=== PATIENT | female | born 1980 | race Hispanic/Latino ===

== ENCOUNTER 2018-12-12 18:03 | Emergency (ER) | payer OTHER ==
[2018-12-12] MEDS ORDERED: CEFTRIAXONE SODIUM 1 GM ONE (20:13)
[2018-12-12] MEDS ORDERED: ACETAMINOPHEN EXTRA STRENGTH 500 MG TABLET ONE (20:14)
[2018-12-12] MEDS ORDERED: AZITHROMYCIN 250 MG TABLET PO ONE (20:14)
[2018-12-12] MEDS ORDERED: DIAZEPAM 5 MG TABLET ONE (20:15)
[2018-12-12] MEDS ORDERED: LIDOCAINE HCL 1% 20 ML VIAL ONE (20:15)
== END 2018-12-12 20:48 | disposition home or self-care (01) ==
LOC: EDH 18:03
DX: J18.9 Pneumonia, unspecified organism (principal); R07.89 Other chest pain; M62.838 Other muscle spasm; J45.909 Unspecified asthma, uncomplicated; Z87.891 Personal history of nicotine dependence
CPT/HCPCS: 71046; 93005; 96372; 99284; J0696

== ENCOUNTER 2020-02-05 12:55 | Emergency (ER) | payer SELFPAY ==
[2020-02-05] MEDS ORDERED: DEXAMETHASONE SOD PHOSPHATE 10MG/ML 1ML VIAL ONE (13:52)
[2020-02-05] MEDS ORDERED: DiphenhydrAMINE HCL 50 MG/ML VIAL ONE (13:53)
[2020-02-05] MEDS ORDERED: FAMOTIDINE/PF 20 MG/2 ML VIAL IV ONE (13:53)
[2020-02-05] MEDS ORDERED: SODIUM CHLORIDE 0.9% 500ML 500 ML IV ONE (13:54)
== END 2020-02-05 15:26 | disposition home or self-care (01) ==
LOC: EDH 12:55
DX: T78.3XXA Angioneurotic edema, initial encounter (principal); J45.909 Unspecified asthma, uncomplicated
CPT/HCPCS: 96365; 96375; 99284; J1100; J1200; J3490; J7040

== ENCOUNTER 2025-06-28 22:01 | Emergency (ER) | payer BC, OTHER ==
[~2025-06-28] VITALS: Ht 160 cm; Wt 97.7 kg
--- NOTE | 2025-06-28 22:04 | NUR ---
UA CUP PROVIDED
[2025-06-28 22:34] LABS: IMMATURE GRANULOCYTE ABSOLUTE 0.07 K/uL (0-1); NUCLEATED RED BLOOD CELLS 0.0 % (0.0-0.19); PLATELET COUNT (AUTO) 388 K/uL (130-400); RED BLOOD CELL COUNT(AUTO) 5.02 MIL/uL (4.00-5.50); RED CELL DISTRIBUTION WIDTH 14.6 % (11.0-15.5); WHITE BLOOD COUNT (AUTO) 16.5 K/uL (4.8-10.8)
[2025-06-28 22:42] LABS: CREATININE 0.7 mg/dL (0.5-1.0); GLOMERULAR FILTR. RATE CALC 108.0 mL/min (>90); GLUCOSE,RANDOM 94.0 mg/dL (70-105); SODIUM SERUM 137.0 mmol/L (136-145); UREA NITROGEN, BLOOD 15.0 mg/dL (7-18)
[2025-06-28 22:47] LABS: ASPARTATE AMINOTRANSFERASE 16.0 U/L (10-37); TOTAL PROTEIN, SERUM 7.5 g/dL (6.0-8.3)
[2025-06-28] MEDS ORDERED: IOHEXOL 350 MG/ML 100ML INFUS..BTL IV ONE (23:19)
[2025-06-28 23:36] LABS: APPEARANCE,URINE CLEAR (CLEAR); GLUCOSE, URINE (UA) NEGATIVE (NEGATIVE); LEUKOCYTE ESTERASE ,URINE NEGATIVE Leu/uL (NEGATIVE); NITRATE,URINE NEGATIVE (NEGATIVE); OCCULT BLOOD,URINE NEGATIVE (NEGATIVE)
[2025-06-28 23:37] LABS: ADD UA MICROSCOPIC NO
--- NOTE | 2025-06-29 00:33 | ERN ---
ED Note History of Present Illness Stated Complaint: RT LOWER ABD PAIN Chief Complaint: Abdominal Pain Time Seen by MD: 22:06 Time Seen by Midlevel: 22:06 Dictation: The patient is a 44-year-old female with a history of asthma, C-sections who presents to the emergency department with complaints of right lower abdominal pain, left lower abdominal pain onset two days ago. Patient denies any fevers, denies nausea vomiting or diarrhea, denies constipation. Allergies: Coded Allergies: No Known Allergies (Unverified Allergy, Unknown, 01/17/23) Past Medical History Past Medical History: Asthma, GERD Surgical History: Other, Surgical History Other: BILATERAL WRISTS RN Note Reviewed/Agreed w/PFSH: Yes Review of System Dictation Constitutional: Negative for fever,chills, and weight loss Eyes: Negative for injury, pain,redness, and discharge ENT: Negative for injury,pain or swelling Cardiovascular: Negative for chest pain, palpitations, and edema Respiratory: Negative for shortness of breath, cough, and wheezing, Abdomen/GI: Negative for nausea, vomiting, diarrhea, and constipation positive for abdominal pain Back: Negative for injury and pain : Negative for injury, bleeding and discharge MS/Extremity: Negative for injury and deformity Skin: Negative for rash, and discoloration Neuro: Negative for headache, weakness, numbness, tingling, and seizure Psych: Negative for suicide ideation, homicidal ideation, and hallucinations Initial Vital Sign VS Vital Signs Date Time Temp Pulse Resp B/P (MAP) Pulse Ox O2 Delivery O2 Flow Rate FiO2 06/28/25 22:03 97.5 64 16 135/75 99 Room Air 06/29/25 02:18 0 21 Physical Exam Dictation Vital Signs reviewed General Appearance: Alert, oriented x 3, no acute distress, well developed, nourished. Head and Face: non-traumatic. Eyes: PERRL, pink conjunctivas, eyelid no trauma, anterior chamber with arcus senilis. Ears: Pinnas intact and no signs of trauma or erythema ear canals clear and no discharge TM no erythema Nose: No discharge, no bleeding. Oropharynx: Mouth normal, tongue pink. pharynx clear,no erythema, tonsils no exudates, no abscesses noted, mucous membrane moist Neck: Supple, non-tender, no thyromegaly, no masses, no JVD, no bruits Breast:Deferred Chest:No tenderness, no crepitus, no paradoxical movement, no retractions Lungs:Clear, well-ventilated, symmetric, no rales, no wheezing, no rhonchi, no stridor, good breath sounds bilaterally Heart: Regular rate, regular rhythm, no murmur, no gallops Vascular: no peripheral edema, Abdomen: Soft, positive bowel sounds, nondistended, no guarding, Left lower quadrant tenderness,, no rebound, no masses no hepatomegaly, no splenomegaly, no Farooq's sign, no hernias. Rectal: Deferred Genital: Deferred Neurological: Normal speech, motor function intact, sensory function intact Musculoskeletal: Neck nontender, full range of motion, back nontender, full range of motion, Extremities: nontender, full range of motion Skin: Color pink, dry, no turgor, no rash, no lacerations, no abrasions, no contusions. Lymphatic: Deferred Results (Laboratory/Radiology) Laboratory/Radiology Laboratory Tests Test 06/28/25 22:13 06/28/25 23:19 White Blood Count 16.5 K/uL (4.8-10.8) H Red Blood Count 5.02 MIL/uL (4.00-5.50) Hemoglobin 12.4 g/dL (12.0-16.0) Hematocrit 38.7 % (36-48) Mean Corpuscular Volume 77.1 fL (79-99) L Mean Corpuscular Hemoglobin 24.7 pg (27.0-33.0) L Mean Corpuscular Hemoglobin Concent 32.0 g/dL (32.0-36.0) Red Cell Distribution Width 14.6 % (11.0-15.5) Platelet Count 388 K/uL (130-400) Mean Platelet Volume 10.2 fL (7.5-10.5) Immature Granulocyte % (Auto) 0.4 % (0-1) Neutrophils (%) (Auto) 60.2 % (40.0-77.0) Lymphocytes (%) (Auto) 33.5 % (21.0-51.0) Monocytes (%) (Auto) 4.5 % (3.0-13.0) Eosinophils (%) (Auto) 1.0 % (0.0-8.0) Basophils (%) (Auto) 0.4 % (0.0-5.0) Neutrophils # (Auto) 9.9 K/uL (1.8-7.7) H Lymphocytes # (Auto) 5.5 K/uL (1.0-4.8) H Monocytes # (Auto) 0.7 K/uL (0.1-1.0) Eosinophils # (Auto) 0.16 K/uL (0.00-0.70) Basophils # (Auto) 0.06 K/uL (0.00-0.20) Absolute Immature Granulocyte (auto 0.07 K/uL (0-1) Nucleated Red Blood Cells 0.0 % (0.0-0.19) Red Blood Cell Morphology See comments Sodium Level 137 mmol/L (136-145) Potassium Level 3.9 mmol/L (3.5-5.1) Chloride Level 103 mmol/L (101-111) Carbon Dioxide Level 30 mmol/L (21-32) Blood Urea Nitrogen 15 mg/dL (7-18) Creatinine 0.7 mg/dL (0.5-1.0) Glomerular Filtration Rate Calc 108 mL/min (>90) Random Glucose 94 mg/dL (70-105) Total Calcium 8.8 mg/dL (8.5-10.1) Total Bilirubin 0.2 mg/dL (0.2-1.0) Aspartate Amino Transf (AST/SGOT) 16 U/L (10-37) Alanine Aminotransferase (ALT/SGPT) 27 U/L (12-78) Alkaline Phosphatase 101 U/L (50-136) Total Protein 7.5 g/dL (6.0-8.3) Albumin 3.5 g/dL (3.5-5.0) Serum Test, Qualitative NEGATIVE (NEGATIVE) Urine Color LIGHT-YELLOW (YELLOW) Urine Appearance CLEAR (CLEAR) Urine pH 6.0 (5.0-8.0) Urine Specific [place] 1.017 (1.001-1.031) Urine Protein NEGATIVE mg/dL (NEGATIVE) Urine Glucose (UA) NEGATIVE mg/dL (NEGATIVE) Urine Ketones NEGATIVE mg/dL (NEGATIVE) Urine Occult Blood NEGATIVE (NEGATIVE) Urine Nitrate NEGATIVE (NEGATIVE) Urine Bilirubin NEGATIVE mg/dL (NEGATIVE) Urine Urobilinogen 0.2 mg/dL (0.2-1.0) Urine Leukocyte Esterase NEGATIVE [place]ckenzie/uL REASON: right and left lower quadrant pain ORDERING PHYSICIAN: KAYLA DONAHUE [facility] PROCEDURE: PELVCOMP - US PELVIC NON-OB COMP EXAM: US Pelvis, Complete Transabdominal. COMPARISON: Ultrasound of the pelvis dated 03/31/2014. CLINICAL HISTORY: Right and left lower quadrant pain. TECHNIQUE: Transabdominal pelvic ultrasound (complete) with image documentation. FINDINGS: ENDOMETRIUM: Normal thickness. Measures 10 mm. UTERUS/CERVIX: The uterus is mildly bulky, measuring 14.3 x 6.0 x 6.9 cm. Hypoechoic lesion in the posterior wall without vascularity measuring 1.4 x 1.6 x 1.7 cm. Multiple cysts in the cervix largest measuring 1.9 x 1 x 1.6 cm. RIGHT OVARY: Normal Doppler flow. Measures 5.4 x 3.1 x 6.5 cm. Cyst measuring 3.2 x 3.5 x 3.9 cm. LEFT OVARY: Normal Doppler flow. Measures 4.2 x 3.1 x 4.2 cm. Cysts measuring 3.8 x 2.5 x 3.3 cm and 1 x 1 x 1 cm. FREE FLUID: No free fluid. IMPRESSION: Bulky uterus with a posterior wall fibroid. New findings. Bilateral ovarian cysts. Nabothian cervical cysts. /[place] REASON: rlq, llq abd pain ORDERING PHYSICIAN: KAYLA DONAHUE [facility] PROCEDURE: ABD PEL W - CT ABDOMEN/PELVIS W/CONTRAST EXAM: CT Abdomen and Pelvis with IV contrast. CLINICAL HISTORY: Pain in both the lower quadrants. TECHNIQUE: Thin collimated axial CT images of the abdomen and pelvis were obtained, with sagittal and coronal reformatted images also submitted. A CT scan is done according to ALARA (As Low As Reasonably Achievable). CONTRAST: Omnipaque 350. COMPARISON: Ultrasound of the pelvis. 06/28/2025. FINDINGS: Unremarkable visualized lung parenchyma. There is no focal abnormality appreciated within the liver, gallbladder, pancreas, spleen, adrenals, or kidneys. Mild hepatomegaly. There is no obvious bowel wall thickening. Bowel loops are normal in caliber without evidence of obstruction or ileus. Mild constipation. The appendix is unremarkable. Uncomplicated colonic diverticula. There is no abnormality within the urinary bladder. Bulky uterus. There is a right ovarian cyst measuring 6.0 x 4.6 cm. Left ovarian cyst measuring 4.0 x 3.0 cm. Small nabothian cysts. No lymphadenopathy. No free fluid. No pneumoperitoneum. No gross abnormality in the abdominal vessels. There is no acute osseous abnormality. Grade 1 anterolisthesis of L5 over S1 by 5 mm. Moderate reduction in L5-S1 intervertebral disc height. Mild levoscoliosis of the lumbar spine. Mild degenerative facet changes. Small uncomplicated fat-containing umbilical hernia. IMPRESSIONS: No acute process in the abdomen or pelvis. Bilateral ovarian cysts. Bulky uterus. Small nabothian cervical cyst. Similar findings on the recent ultrasound. Uncomplicated colonic diverticula. Mild hepatomegaly. Grade 1 anterolisthesis of L5 over S1 by 5 mm. Moderate reduction in L5-S1 intervertebral disc height. /[place] Labs Reviewed?: Yes ED Course ED Course Orders Procedure Category Date Status Time Cbc With Differential LAB 06/28/25 In Process 22:05 Comprehensive LAB 06/28/25 Complete Metabolic Panel 22:05 Urinalysis Profile LAB 06/28/25 Complete 22:05 Us Pelvic Non-Ob Comp US 06/28/25 Resulted 22:21 0.9%Nacl 1000ml (Ns PHA 06/28/25 Complete 1000ml) 22:30 Morphine 4mg Syg PHA 06/28/25 Complete (Morphine 4mg Syg) 22:30 Ondansetron 4mg Inj PHA 06/28/25 Complete (Zofran 4mg Inj) 22:30 Testing, LAB 06/28/25 Complete Serum Hcg 22:52 Ct Abdomen/Pelvis CT 06/28/25 Resulted W/Contrast 23:19 Iohexol (Omnipaque) PHA 06/29/25 Complete 01:49 Current Medications Medications (Trade) Dose Ordered Sig/Cristin Route PRN Reason Start Time Stop Time Status Last Admin Dose Admin Iohexol (Omnipaque) 35,000 mg STK-MED ONCE IV 06/29/25 01:49 06/29/25 01:49 DC Morphine Sulfate (morPHINE 4MG SYG) 4 mg ONCE ONCE IVP 06/28/25 22:30 06/28/25 22:32 DC 06/29/25 01:12 Ondansetron HCl (zoFRAN 4MG INJ) 4 mg ONCE ONCE IVP 06/28/25 22:30 06/28/25 22:32 DC 06/29/25 01:12 Sodium Chloride 1,000 ml @ 0 mls/hr ONCE ONCE IV 06/28/25 22:30 06/28/25 22:32 DC 06/29/25 01:12 Vital Signs Date Time Temp Pulse Resp B/P (MAP) Pulse Ox O2 Delivery O2 Flow Rate FiO2 06/29/25 02:18 98.2 80 17 121/70 99 Room Air* 0 21 06/28/25 22:03 97.5 64 16 135/75 99 Room Air Medical Decision Making MDM The patient is a 44-year-old female with a history of asthma, C-sections who presents to the emergency department with complaints of right lower abdominal pain, left lower abdominal pain onset two days ago. Patient denies any fevers, denies nausea vomiting or diarrhea, denies constipation. CBC showed leukocytosis, no anemia, chemistry showed no electrolyte imbalance, normal renal function, negative liver enzymes, negative troponin, urinalysis unremarkable. Pelvic ultrasound is reviewed bulking uterus with posterior while fibroid bilateral ovarian cysts CT abdomen pelvis showed no signs of appendiciti s, mild constipation, uncomplicated colonic diverticula. No acute pathology. On physical exam patient is in no acute distress, nontoxic appearance. Pain improved. Patient does reports she has a appointment with her PCP this morning. Patient will be discharged to follow up with PCP. Discharge delayed due to patient being in the lobby for the 1st few hours. Differential diagnosis: Ovarian cyst, appendicitis, gastroenteritis, UTI Need for hospitalization: Patient does not meet criteria for hospitalization. There are no social concerns with this patient. DX & DISP Disposition: Discharge Departure Impression: Primary Impression: Bilateral ovarian cysts Additional Impressions: Uterine fibroid, Lower abdominal pain, Leukocytosis Condition: Stable Scripts Ibuprofen (Ibuprofen) 600 Mg Tablet 1 TAB PO TID for pain for 10 Days, #30 TAB 0 Refills with food Prov: KAYLA DONAHUE MEDICINE TECHNOLOGIST 06/29/25 Additional Instructions: Follow up with the primary doctor in 1-2 days. Follow up with your OBGYN about your ovarian cyst if anything worsens please return to ER. FOLLOW-UP WITH PRIMARY CARE PROVIDER IN 1 TO 2 DAYS. TAKE MEDICATIONS DIRECTED HERE IN THE EMERGENCY ROOM. OKAY TO CONTINUE HOME MEDICATIONS UNLESS OTHERWISE DISCUSSED DURING YOUR VISIT IN THE EMERGENCY ROOM TODAY. RETURN TO YOUR NEAREST EMERGENCY ROOM IF SYMPTOMS WORSEN OR IF THERE IS NO IMPROVEMENT. CALL 911 IF YOU NEED IMMEDIATE ASSISTANCE. TAKE TYLENOL [id number] NEEDED AND IF NO CONTRAINDICATIONS ARE PRESENT. INCREASE ORAL HYDRATION. A WOUND CULTURE OR URINE CULTURE WAS ORDERED HERE IN THE EMERGENCY ROOM DEPARTMENT PLEASE FOLLOW-UP WITH PRIMARY CARE PROVIDER AND ADVISE THEM TO GET REPEAT PORTS FROM OUR FACILITY. IF YOU HAD ANY PATRICIA WRAP/SPLINTS THAT WERE APPLIED HERE, PLEASE DO NOT REMOVE THEM UNTIL YOU SEE YOUR PRIMARY CARE OR SPECIALTY. Referrals: SELF,REFERRAL (PCP) Time of Disposition: 02:59 I have reviewed the case, and I agree with, Diagnosis and Plan KAYLA DONAHUE MEDICINE TECHNOLOGIST Jun 29, 2025 00:33
--- NOTE | 2025-06-29 01:04 | HMCIMG ---
EXAM: US Pelvis, Complete Transabdominal. COMPARISON: Ultrasound of the pelvis dated 03/31/2014. CLINICAL HISTORY: Right and left lower quadrant pain. TECHNIQUE: Transabdominal pelvic ultrasound (complete) with image documentation. FINDINGS: ENDOMETRIUM: Normal thickness. Measures 10 mm. UTERUS/CERVIX: The uterus is mildly bulky, measuring 14.3 x 6.0 x 6.9 cm. Hypoechoic lesion in the posterior wall without vascularity measuring 1.4 x 1.6 x 1.7 cm. Multiple cysts in the cervix largest measuring 1.9 x 1 x 1.6 cm. RIGHT OVARY: Normal Doppler flow. Measures 5.4 x 3.1 x 6.5 cm. Cyst measuring 3.2 x 3.5 x 3.9 cm. LEFT OVARY: Normal Doppler flow. Measures 4.2 x 3.1 x 4.2 cm. Cysts measuring 3.8 x 2.5 x 3.3 cm and 1 x 1 x 1 cm. FREE FLUID: No free fluid. IMPRESSION: Bulky uterus with a posterior wall fibroid. New findings. Bilateral ovarian cysts. Nabothian cervical cysts. /[place]
[2025-06-29] MEDS: 0.9%NACL 1000ML 1,000 ML IV ONE (01:12)
[2025-06-29] MEDS ORDERED: IOHEXOL 350 MG/ML 100ML INFUS..BTL IV ONE (01:49)
[2025-06-29 02:18] VITALS: BP 121/70; PULSE 80; RESP 17; TEMP 98.2; O2SAT 99
--- NOTE | 2025-06-29 02:50 | HMCIMG ---
EXAM: CT Abdomen and Pelvis with IV contrast. CLINICAL HISTORY: Pain in both the lower quadrants. TECHNIQUE: Thin collimated axial CT images of the abdomen and pelvis were obtained, with sagittal and coronal reformatted images also submitted. A CT scan is done according to ALARA (As Low As Reasonably Achievable). CONTRAST: Omnipaque 350. COMPARISON: Ultrasound of the pelvis. 06/28/2025. FINDINGS: Unremarkable visualized lung parenchyma. There is no focal abnormality appreciated within the liver, gallbladder, pancreas, spleen, adrenals, or kidneys. Mild hepatomegaly. There is no obvious bowel wall thickening. Bowel loops are normal in caliber without evidence of obstruction or ileus. Mild constipation. The appendix is unremarkable. Uncomplicated colonic diverticula. There is no abnormality within the urinary bladder. Bulky uterus. There is a right ovarian cyst measuring 6.0 x 4.6 cm. Left ovarian cyst measuring 4.0 x 3.0 cm. Small nabothian cysts. No lymphadenopathy. No free fluid. No pneumoperitoneum. No gross abnormality in the abdominal vessels. There is no acute osseous abnormality. Grade 1 anterolisthesis of L5 over S1 by 5 mm. Moderate reduction in L5-S1 intervertebral disc height. Mild levoscoliosis of the lumbar spine. Mild degenerative facet changes. Small uncomplicated fat-containing umbilical hernia. IMPRESSIONS: No acute process in the abdomen or pelvis. Bilateral ovarian cysts. Bulky uterus. Small nabothian cervical cyst. Similar findings on the recent ultrasound. Uncomplicated colonic diverticula. Mild hepatomegaly. Grade 1 anterolisthesis of L5 over S1 by 5 mm. Moderate reduction in L5-S1 intervertebral disc height. /[place]
[2025-06-29] MEDS ORDERED: IBUP-1492 PO (03:01)
== END 2025-06-29 03:15 | disposition home or self-care (01) ==
LOC: EDH 22:01
DX: N83.201 Unspecified ovarian cyst, right side (principal); N83.202 Unspecified ovarian cyst, left side; D25.9 Leiomyoma of uterus, unspecified; D72.829 Elevated white blood cell count, unspecified; J45.909 Unspecified asthma, uncomplicated; K21.9 Gastro-esophageal reflux disease without esophagitis; Z98.890 Other specified postprocedural states
CPT/HCPCS: 99285; 74177; 76856; 80053; 84703; 85025; 81003; 36415; 96374; 96375; Q9967; J7030; J2270; J2405